=== PATIENT | male | born 1930 | race Caucasian/White ===

== ENCOUNTER 2016-09-23 12:18 | Emergency (ER) | payer OTHER ==
[~2016-09-23] VITALS: Ht 172.7 cm; Wt 86.8 kg
[~2016-09-23 12:18] MED LIST: Atarax,Vistaril PO; Coumadin,Jantoven PO; FOLIC ACID1 MG PO; Feosol PO; Glucosamine/Chondroi PO; KRILL OIL PO; LO-DOSE ASPIRIN81 M1 PO; LOTENSIN20 MG PO; Lopressor PO; Lotrel 5/20 PO; MOBIC7.5 MG PO; NORVASC5 MG PO; PREDNISONE1 MG PO; Percocet 5/325,Endoc PO; STOOL SOFTENER100 MG PO; SULFAZINE500 MG PO; TYLENOL EXTRA500 MG PO; Xanax PO; [UNRECOGNIZED DRUG - OTHER] PO
[2016-09-23 14:02] LABS: EOSINOPHIL (%) 0 % (0-5); HEMATOCRIT 33.6 % (38.0-50.0); IMMATURE GRANULOCYTE (%) 0.3 % (0.0-0.7); INSTRUMENT ABS NEUTROPHIL CT 5.8 K/uL; LYMPHOCYTE COUNT 0.8 K/uL (1.0-2.8); MCHC 33.6 G/DL (30.0-36.0); MCV 89.1 FL (86-99); MEAN PLAT.VOLUME 9.6 uM^3 (9.0-12.4); MONOCYTE (%) 11.3 % (3-12); MONOCYTE COUNT 0.8 K/uL (0-0.8); NEUTROPHIL (%) 77.2 % (45-76); NEUTROPHIL COUNT 5.8 K/uL (1.8-6.4); PLATELET COUNT 299 K/uL (156-360); RBC DIS.WIDTH-CV 14.1 % (11.8-14.6); RBC DIS.WIDTH-SD 45.8 % (39-53); RED BLOOD COUNT 3.77 M/uL (4.00-5.50); WHITE BLOOD COUNT 7.4 K/uL (4.1-10.2)
[2016-09-23 14:15] LABS: CHLORIDE 108 mEq/L (99-109); POTASSIUM 4.7 mEq/L (3.7-5.4); SODIUM 140 mEq/L (136-147)
[2016-09-23 14:17] LABS: GLUCOSE 105 mg/dL (70-99)
[2016-09-23 14:19] LABS: ANION GAP 9 MEQ/L (2-14); TOTAL BILIRUBIN 0.5 mg/dL (0.0-1.0)
[2016-09-23 14:21] LABS: ALKALINE PHOSPHATASE 57 IU/L (3-129); GFR ESTIMATE (CALCULATED) 47 mL/min/
[2016-09-23 14:22] LABS: UREA NITROGEN (BUN) 27 mg/dL (9-23)
[2016-09-23 14:24] LABS: TROP-I INTERPRETATION NEGATIVE; TROPONIN-I 0.02 ng/mL (0.0-0.30)
[2016-09-23 16:10] VITALS: BP 132/61
== END 2016-09-23 16:11 | disposition home or self-care (01) ==
LOC: EME 12:18
PROVIDERS: Emergency Medicine
DX: I49.3 Ventricular premature depolarization (principal); I12.9 Hypertensive chronic kidney disease with stage 1 through stage 4 chronic kidney disease, or unspecified chronic kidney disease; N18.9 Chronic kidney disease, unspecified; E78.5 Hyperlipidemia, unspecified; Z96.652 Presence of left artificial knee joint; Z79.82 Long term (current) use of aspirin
CPT/HCPCS: 71010; 80053; 83735; 84484; 85025; 93005; 99281; 99284